=== PATIENT | female | born 2000 | race Hispanic/Latino ===

== ENCOUNTER 2020-07-05 11:51 | Outpatient (CLI) | payer OTHER | END 2020-07-05 11:52 | disposition home or self-care (01) | LOC: CSHRAD 11:51 | PROVIDERS: ATTEND Nurse Practitioner Family | DX: S56.911A Strain of unspecified muscles, fascia and tendons at forearm level, right arm, initial encounter (principal); S59.911A Unspecified injury of right forearm, initial encounter ==